=== PATIENT | female | born 1990 | race Caucasian/White ===

== ENCOUNTER 2016-11-29 17:30 | Emergency (ER) | payer OTHER ==
[2016-11-29 18:52] VITALS: BP 159/73
--- NOTE | 2016-11-29 19:08 | UC ---
Hand/Wrist HPI - HPI Summary HPI Summary: right wrist pain has been coloring at least 5 hours a day for the past week or so---no specific injury tender radial aspect of wrist - History Of Current Complaint Chief Complaint: UCUpperExtremity Stated Complaint: WRIST PAIN Time Seen by Provider: 11/29/16 18:52 Hx Obtained From: Patient Hx Last Menstrual Period: 2 yrs ?: No Mechanism Of Injury: none Onset/Duration: Sudden Onset, Lasting Days - 1, Still Present Severity Initially: Moderate Severity Currently: Moderate Character Of Pain: Aching Aggravating Factor(s): Movement Alleviating: Rest Associated Signs And Symptoms: Positive: Negative Related History: Dominant Hand Right - Allergies/Home Medications Allergies/Adverse Reactions: Allergies Allergy/AdvReac Type Severity Reaction Status Date / Time Amoxicillin [From Augmentin] Allergy Intermediate Hives Verified 11/29/16 18:52 Clavulanic Acid Allergy Intermediate Hives Verified 11/29/16 18:52 [From Augmentin] Latex Allergy Hives Verified 11/29/16 18:52 PMH/Surg Hx/FS Hx/Imm Hx Previously Healthy: No Endocrine History Of: Denies: Diabetes, Thyroid Disease Cardiovascular History Of: Denies: Cardiac Disorders, Hypertension Respiratory History Of: Denies: COPD, Asthma GI/ History Of: Denies: Ulcer - Surgical History Surgical History: Yes Surgery Procedure, Year, and Place: Tonsillectomy age 7 - Family History Known Family History: Positive: Other - irritable bowel syndrome- mother , diabetic, - Social History Occupation: Unemployed Lives: With Family Alcohol Use: None Substance Use Type: None Smoking Status (MU): Current Every Day Smoker Type: Cigarettes Amount Used/How Often: 1/2 PPD Have You Smoked in the Last Year: Yes Cessation Counseling: Counseled 3+Min - 10 Min Review of Systems Constitutional: Negative Skin: Negative Eyes: Negative ENT: Negative Respiratory: Negative Cardiovascular: Negative Gastrointestinal: Negative Genitourinary: Negative Motor: Other - full rom radial aspect tender Neurovascular: Negative Musculoskeletal: Arthralgia - right wrist Neurological: Negative Psychological: Negative All Other Systems Reviewed And Are Negative: Yes Physical Exam Triage Information Reviewed: Yes Appearance: Well-Appearing, Pain Distress - mild, Obese Vital Signs: Initial Vital Signs Temp 98.2 F 11/29/16 18:48 Pulse 63 11/29/16 18:48 Resp 12 11/29/16 18:48 BP 159/73 11/29/16 18:48 Pulse Ox 99 11/29/16 18:48 Vital Signs Reviewed: Yes Eye Exam: Normal Eyes: Positive: Conjunctiva Clear ENT Exam: Normal ENT: Positive: Normal ENT inspection, Hearing grossly normal. Negative: Nasal congestion, Nasal drainage, Tonsillar swelling, Tonsillar exudate, Trismus, Muffled/hoarse voice Neck exam: Normal Neck: Positive: Supple, Nontender, No Lymphadenopathy Respiratory Exam: Normal Respiratory: Positive: Chest non-tender, No respiratory distress, No accessory muscle use Cardiovascular Exam: Normal Cardiovascular: Positive: RRR, Pulses Normal, Brisk Capillary Refill Musculoskeletal Exam: Normal Musculoskeletal: Positive: ROM Intact, No Edema, Strength Limited @ - right wrist Neurological Exam: Normal Neurological: Positive: Alert, Muscle Tone Normal Psychological Exam: Normal Psychological: Positive: Normal Response To Family Skin Exam: Normal Re-Evaluation - Re-Evaluation First Eval Change: Improved - Thumb Spica apllied--patient reports increase comfort Hand/Wrist Course/Dx - Course Course Of Treatment: Naproxen, splint, follow with pcp - Differential Dx/Diagnosis Differential Diagnosis/HQI/PQRI: Fracture, Sprain, Strain, Tendonitis Provider Diagnoses: Right wrist tendonitis Discharge - Discharge Plan Condition: Stable Disposition: HOME Patient Education Materials: Naproxen (By mouth), Tendinitis (ED) Referrals: Katherine BROOKE ROUNDHOUSE WORKERAlanis [Primary Care Provider] - 1 Week
== END 2016-11-29 19:10 | disposition home or self-care (01) ==
LOC: UCEAST 17:30
DX: M77.9 Enthesopathy, unspecified (principal); M25.531 Pain in right wrist; Z88.1 Allergy status to other antibiotic agents; Z88.0 Allergy status to penicillin; F17.210 Nicotine dependence, cigarettes, uncomplicated
CPT/HCPCS: 99212; G0463

== ENCOUNTER 2017-07-08 18:58 | Emergency (ER) | payer OTHER ==
[2017-07-08 19:04] VITALS: BP 149/92
--- NOTE | 2017-07-08 19:12 | UC ---
Throat Pain/Nasal Jake HPI - HPI Summary HPI Summary: ST with sweating starting yesterday. Denies nasal congestion, cough, or wheezing. No exposure to strep as far as she knows. Also noticed itchy red area on top of L foot a few days ago, now it is painful and open. - History of Current Complaint Stated Complaint: FEVER THROAT PAIN Time Seen by Provider: 07/08/17 19:02 Hx Obtained From: Patient Hx Last Menstrual Period: 2 yrs ?: No Onset/Duration: Gradual Onset, Lasting Days Severity: Mild Cough: None Associated Signs & Symptoms: Positive: Fever - subj. Negative: Sinus Discomfort , Nasal Discharge - Allergies/Home Medications Allergies/Adverse Reactions: Allergies Allergy/AdvReac Type Severity Reaction Status Date / Time Amoxicillin [From Augmentin] Allergy Intermediate Hives Verified 07/08/17 19:05 Clavulanic Acid Allergy Intermediate Hives Verified 07/08/17 19:05 [From Augmentin] Latex Allergy Hives Verified 07/08/17 19:05 Home Medications: Home Medications Escitalopram Oxalate [Lexapro 10 mg] 07/08/17 [History] PMH/Surg Hx/FS Hx/Imm Hx Respiratory History: Asthma Psychological History: Depression - Surgical History Surgical History: Yes Surgery Procedure, Year, and Place: Tonsillectomy age 7 - Family History Known Family History: Positive: None, Other - irritable bowel syndrome- mother , diabetic, - Social History Alcohol Use: None Substance Use Type: None Smoking Status (MU): Current Every Day Smoker Type: Cigarettes Amount Used/How Often: 1/2 PPD Have You Smoked in the Last Year: Yes Review of Systems Constitutional: Chills Skin: Other - open, red area of skin Eyes: Negative ENT: Sore Throat Respiratory: Negative Cardiovascular: Negative Gastrointestinal: Negative Genitourinary: Negative Motor: Negative Neurovascular: Negative Musculoskeletal: Negative Neurological: Negative Psychological: Negative All Other Systems Reviewed And Are Negative: Yes Physical Exam Triage Information Reviewed: Yes Appearance: Well-Appearing, No Pain Distress, Obese Vital Signs Reviewed: Yes Eye Exam: Normal Eyes: Positive: Conjunctiva Clear ENT: Positive: Hearing grossly normal, Pharynx normal, TMs normal. Negative: TM bulging, TM dull, TM red, Tonsillar swelling, Tonsillar exudate - no tonsils Dental Exam: Normal Neck exam: Normal Neck: Positive: No Lymphadenopathy Respiratory: Positive: Chest non-tender, No accessory muscle use, Wheezing - mild Cardiovascular Exam: Normal Cardiovascular: Positive: RRR, No Murmur Musculoskeletal Exam: Normal Neurological Exam: Normal Neurological: Positive: Alert Psychological Exam: Normal Skin Exam: Other - approx 2cm round area of irreg redness with excoriated ulcers in the center. No drainage or streaking. Throat Pain/Nasal Course/Dx - Differential Dx/Diagnosis Provider Diagnoses: pharyngitis. insect bite/sting Discharge - Discharge Plan Condition: Stable Disposition: HOME Patient Education Materials: Insect Bite or Sting (ED), Pharyngitis (ED) Referrals: Katherine DEALPAlanis [Primary Care Provider] - Additional Instructions: Rapid strep test negative. Many illnesses can cause sore throats, but most of them simply need time and rest to pass. You can take ibuprofen as needed for pain or try warm saltwater gargles. Try to leave the skin on your foot alone. If you have sudden increase in redness or streaking up the leg, come back right away.
== END 2017-07-08 19:30 | disposition home or self-care (01) ==
LOC: UCEAST 18:58
DX: J02.9 Acute pharyngitis, unspecified (principal); S90.862A Insect bite (nonvenomous), left foot, initial encounter; W57.XXXA Bitten or stung by nonvenomous insect and other nonvenomous arthropods, initial encounter; Y93.9 Activity, unspecified; Y92.9 Unspecified place or not applicable; J45.909 Unspecified asthma, uncomplicated; F32.9 Major depressive disorder, single episode, unspecified; E66.9 Obesity, unspecified; Z88.1 Allergy status to other antibiotic agents; Z91.040 Latex allergy status; F17.210 Nicotine dependence, cigarettes, uncomplicated
CPT/HCPCS: 87651; 99211; G0463

== ENCOUNTER 2017-08-21 16:29 | Emergency (ER) | payer OTHER ==
[2017-08-21 17:00] VITALS: BP 153/84
--- NOTE | 2017-08-21 18:00 | ED ---
Throat Pain/Nasal Congestion - HPI Summary HPI Summary: 27F presents with sore throat, sinus congestion, and ear pain for 4 days. daughter has similiar symptoms. no fever. has tonsils removed. no history of asthma. has productive cough. admits to post nasal drip. - History of Current Complaint Chief Complaint: UCRespiratory Time Seen by Provider: 08/21/17 17:06 - Allergies/Home Medications Allergies/Adverse Reactions: Allergies Allergy/AdvReac Type Severity Reaction Status Date / Time Amoxicillin [From Augmentin] Allergy Intermediate Hives Verified 08/21/17 17:00 Clavulanic Acid Allergy Intermediate Hives Verified 08/21/17 17:00 [From Augmentin] Latex Allergy Hives Verified 08/21/17 17:00 Home Medications: Home Medications Pseudoephedrine HCl [Sudafed 12 Hour] 120 mg PO DAILY PRN 08/21/17 [History Confirmed 08/21/17] PMH/Surg Hx/FS Hx/Imm Hx Endocrine/Hematology History: Denies: Hx Diabetes, Hx Thyroid Disease Cardiovascular History: Denies: Hx Hypertension Respiratory History: Denies: Hx Asthma, Hx Chronic Obstructive Pulmonary Disease (COPD) GI History: Denies: Hx Ulcer - Surgical History Surgery Procedure, Year, and Place: Tonsillectomy age 7 Infectious Disease History: No Infectious Disease History: Denies: Hx Hepatitis, Hx Human Immunodeficiency Virus (HIV), Traveled Outside the [place] in Last 30 Days - Family History Known Family History: Positive: None, Other - irritable bowel syndrome- mother , diabetic, - Social History Alcohol Use: None Hx Substance Use: No Substance Use Type: Reports: None Hx Tobacco Use: Yes Smoking Status (MU): Heavy Every Day Tobacco Smoker Type: Cigarettes Amount Used/How Often: 1 PPD Have You Smoked in the Last Year: Yes Review of Systems Negative: Fever Positive: Sore Throat, Nasal Discharge Negative: Chest Pain Positive: Cough. Negative: Shortness Of Breath All Other Systems Reviewed And Are Negative: Yes Physical Exam Triage Information Reviewed: Yes Vital Signs On Initial Exam: Initial Vitals Temp Pulse Resp BP Pulse Ox 97.1 F 84 16 153/84 99 08/21/17 16:56 08/21/17 16:56 08/21/17 16:56 08/21/17 16:56 08/21/17 16:56 Vital Signs Reviewed: Yes Appearance: Positive: Well-Appearing Skin: Positive: Warm, Dry Head/Face: Positive: Normal Head/Face Inspection Eyes: Positive: Normal, EOMI, RK, Conjunctiva Clear ENT: Positive: Pharyngeal erythema, Nasal congestion, TMs normal, Other - no tonsils, soft palate symmetric. Negative: Trismus, Muffled/hoarse voice Neck: Positive: Supple, Nontender, No Lymphadenopathy Respiratory/Lung Sounds: Positive: Clear to Auscultation, Breath Sounds Present Cardiovascular: Positive: Normal, RRR Abdomen Description: Positive: Nontender, Soft Bowel Sounds: Positive: Present Diagnostics - Vital Signs Vital Signs Temp Pulse Resp BP Pulse Ox 08/21/17 16:56 97.1 F 84 16 153/84 99 - Laboratory Lab Results: Lab Results 08/21/17 Range/Units 17:21 Group A Strep Rapid Negative (Negative) Lab Statement: Any lab studies that have been ordered have been reviewed, and results considered in the medical decision making process. EENT Course/Dx - Course Course Of Treatment: 27F presents with sore throat, sinus congestion, and ear pain for 4 days. daughter has similiar symptoms. no fever. has tonsils removed. no history of asthma. has productive cough. admits to post nasal drip. on exam lungs CTA. strept neg. will treat with tessalon and magic mouth wash. patient understands and agrees with plan. - Differential Diagnoses Differential Diagnoses: Pharyngitis, Sinusitis, URI/Bronchitis - Diagnoses Provider Diagnoses: Upper respiratory infection Discharge - Discharge Plan Condition: Good Disposition: HOME Prescriptions: Benzonatate CAP* [Tessalon 100 MG CAP*] 100 mg PO TID #15 cap Magic Mouth Was-MILLIE/MAAL/LIDO* 5 ml SWISH SWAL QID #100 ml Patient Education Materials: Upper Respiratory Infection (ED) Referrals: Katherine BROOKE WINDLACE MACHINE OPERATOR,Alanis [Primary Care Provider] - Additional Instructions: Magic mouthwash 5ml swish and spit can use 4x a day use tessalon three times a day for cough Take Tylenol or ibuprofen for pain Use saline spray in nose as much as needed Use humidifier in room or can use warm water in bowls Can gargle salt water Follow up with primary within a week Return to ED if develop any new or worsening symptom
== END 2017-08-21 18:14 | disposition home or self-care (01) ==
LOC: UCEAST 16:29
DX: J06.9 Acute upper respiratory infection, unspecified (principal); Z88.1 Allergy status to other antibiotic agents; F17.210 Nicotine dependence, cigarettes, uncomplicated
CPT/HCPCS: 87651; 99212; G0463

== ENCOUNTER 2017-09-12 17:30 | Emergency (ER) | payer OTHER ==
[2017-09-12 17:43] VITALS: BP 144/80
--- NOTE | 2017-09-12 17:51 | UC ---
Eye Complaint HPI - HPI Summary HPI Summary: 27 year old female presents with complains of right eye redness, ulcers on the roof of the mouth and small skin wounds on both arms. - History of Current Complaint Chief Complaint: UCGeneralIllness Stated Complaint: EYE COMPLAINT Time Seen by Provider: 09/12/17 17:49 Hx Obtained From: Patient Hx Last Menstrual Period: depo Onset/Duration: Sudden Onset Timing: Constant Severity Currently: Moderate - Allergies/Home Medications Allergies/Adverse Reactions: Allergies Allergy/AdvReac Type Severity Reaction Status Date / Time Amoxicillin [From Augmentin] Allergy Intermediate Hives Verified 08/21/17 17:00 Clavulanic Acid Allergy Intermediate Hives Verified 08/21/17 17:00 [From Augmentin] Latex Allergy Hives Verified 08/21/17 17:00 PMH/Surg Hx/FS Hx/Imm Hx Previously Healthy: Yes - Surgical History Surgical History: None Surgery Procedure, Year, and Place: Tonsillectomy age 7 - Family History Known Family History: Positive: None, Other - irritable bowel syndrome- mother , diabetic, - Social History Alcohol Use: None Substance Use Type: None Smoking Status (MU): Heavy Every Day Tobacco Smoker Type: Cigarettes Amount Used/How Often: 1 PPD Have You Smoked in the Last Year: Yes - Immunization History Most Recent Influenza Vaccination: none Review of Systems Constitutional: Negative Skin: Other - skin lesions Eyes: Drainage, Eye Redness ENT: Other - mouth ulcers on the roof of the mouth. Respiratory: Negative Cardiovascular: Negative Gastrointestinal: Negative Genitourinary: Negative Motor: Negative Neurovascular: Negative Musculoskeletal: Negative Neurological: Negative Psychological: Negative All Other Systems Reviewed And Are Negative: Yes Physical Exam Triage Information Reviewed: Yes Vital Signs: Initial Vital Signs Temp 36.8 C 09/12/17 17:35 Pulse 77 09/12/17 17:35 Resp 16 09/12/17 17:35 BP 144/80 09/12/17 17:35 Pulse Ox 100 09/12/17 17:35 Vital Signs Reviewed: Yes Eyes: Positive: Conjunctiva Inflamed, Discharge ENT: Positive: Other: - mouth ulcers Dental Exam: Normal Neck exam: Normal Neck: Positive: 1 Respiratory Exam: Normal Cardiovascular Exam: Normal Abdominal Exam: Normal Musculoskeletal Exam: Normal Neurological Exam: Normal Psychological Exam: Normal Skin Exam: Normal Eye Complaint Course/Dx - Differential Dx/Diagnosis Provider Diagnoses: right conjunctivitis. mouth ulcers/canker sores Discharge - Discharge Plan Condition: Stable Disposition: HOME Prescriptions: DOXYcycline CAP(*) [DOXYcycline 100MG CAP(*)] 100 mg PO BID #14 cap Magic M W2 Huseyin/Maal/Nyst/Lido* 5 ml SWISH SPIT QID PRN #120 ml PRN Reason: Pain Polymyx/Trimethoprim OPTH* [Polytrim OPHTH*] 1 drop RIGHT EYE Q8H #1 btl Patient Education Materials: Canker Sores (ED), Conjunctivitis (ED) Referrals: Katherine BROOKE INTERNET ARCHITECT,Alanis [Primary Care Provider] -
== END 2017-09-12 18:08 | disposition home or self-care (01) ==
LOC: UCEAST 17:30
DX: H10.9 Unspecified conjunctivitis (principal); Z88.1 Allergy status to other antibiotic agents; F17.210 Nicotine dependence, cigarettes, uncomplicated; K12.0 Recurrent oral aphthae
CPT/HCPCS: 99211; G0463

== ENCOUNTER 2018-05-13 19:18 | Emergency (ER) | payer OTHER ==
[2018-05-13 19:34] VITALS: BP 142/78
--- NOTE | 2018-05-13 19:51 | UC ---
Ear Complaint HPI - HPI Summary HPI Summary: 27 year old female with no significant pmhx here for left ear pain since yesterday. Patient reports sharp pain that developed right after holding her nose and blowing out while playing a game. She reports she felt a pop and severe pain since then. Decreased hearing and constant pain. No other complaints. - History of Current Complaint Chief Complaint: UCEar Stated Complaint: EAR COMPLAINT Time Seen by Provider: 05/13/18 19:24 Hx Obtained From: Patient Hx Last Menstrual Period: on depo Onset/Duration: Sudden Onset Severity Initially: Mild Pain Intensity: 7 Alleviating Factors: OTC Meds - Allergies/Home Medications Allergies/Adverse Reactions: Allergies Allergy/AdvReac Type Severity Reaction Status Date / Time amoxicillin [From Augmentin] Allergy Hives Verified 05/13/18 19:26 clavulanic acid Allergy Hives Verified 05/13/18 19:26 [From Augmentin] latex Allergy Hives Verified 05/13/18 19:26 Home Medications: Home Medications Topiramate [Topamax] 200 mg PO BID 05/13/18 [History Confirmed 05/13/18] PMH/Surg Hx/FS Hx/Imm Hx Previously Healthy: Yes - Surgical History Surgical History: None Surgery Procedure, Year, and Place: Tonsillectomy age 7 - Family History Known Family History: Positive: None, Other - irritable bowel syndrome- mother , diabetic, - Social History Alcohol Use: None Substance Use Type: None Smoking Status (MU): Heavy Every Day Tobacco Smoker Type: Cigarettes Amount Used/How Often: 1 PPD Have You Smoked in the Last Year: Yes - Immunization History Most Recent Influenza Vaccination: none Review of Systems Constitutional: Negative Skin: Negative Eyes: Negative ENT: Ear Ache Respiratory: Negative Cardiovascular: Negative Gastrointestinal: Negative Genitourinary: Negative Motor: Negative Neurovascular: Negative Musculoskeletal: Negative Neurological: Negative Psychological: Negative Is Patient Immunocompromised?: No All Other Systems Reviewed And Are Negative: Yes Physical Exam Triage Information Reviewed: Yes Appearance: Well-Appearing, No Pain Distress Vital Signs: Initial Vital Signs Temp 35.9 C 05/13/18 19:25 Pulse 71 05/13/18 19:25 Resp 18 05/13/18 19:25 BP 142/78 05/13/18 19:25 Pulse Ox 98 05/13/18 19:25 ENT: Positive: Other - Left ear with dried blood over TM; no rupture of TM Respiratory Exam: Normal Cardiovascular Exam: Normal Musculoskeletal Exam: Normal Skin Exam: Normal Ear Complaint Course/Dx - Differential Dx/Diagnosis Differential Diagnosis/HQI/PQRI: Barotrauma, Perforated TM, Other Provider Diagnoses: Left ear pain with evidence of mild bleeding,. No evidence of ruptured TM. Applied ear wick with immediate relief. Discharge - Sign-Out/Discharge Documenting (check all that apply): Discharge/Admit/Transfer - Discharge Plan Condition: Good Disposition: HOME Prescriptions: Ibuprofen 800 mg PO Q8HR PRN #30 tablet PRN Reason: Pain Patient Education Materials: Earache (ED) Referrals: Marquis Rios MD [Medical Doctor] - Additional Instructions: Apply ear wick to left ear for comfort - Billing Disposition and Condition Condition: GOOD Disposition: Home
== END 2018-05-13 20:05 | disposition home or self-care (01) ==
LOC: UCEAST 19:18
DX: H92.02 Otalgia, left ear (principal); H92.22 Otorrhagia, left ear; Z88.0 Allergy status to penicillin; Z88.1 Allergy status to other antibiotic agents; Z91.040 Latex allergy status; F17.210 Nicotine dependence, cigarettes, uncomplicated; Z83.3 Family history of diabetes mellitus
CPT/HCPCS: 99202; G0463

== ENCOUNTER 2018-05-26 16:22 | Emergency (ER) | payer OTHER ==
[2018-05-26 16:29] VITALS: BP 134/85
--- NOTE | 2018-05-26 16:32 | UC ---
Skin Complaint HPI - HPI Summary HPI Summary: 27 yo female presents with rash to arms, legs, and chest for the last 3 days after swimming in a [place]. The rash is itchy, but not painful. Has not taken anything OTC or applied any creams. Denies fever, chills, or trouble breathing. - History of Current Complaint Chief Complaint: UCRash Time Seen by Provider: 05/26/18 16:32 Stated Complaint: RASH Hx Obtained From: Patient Hx Last Menstrual Period: Depo Onset/Duration: Gradual Onset Skin Exposure Onset/Duration: Days Ago Current Severity: None Pain Intensity: 0 - Allergy/Home Medications Allergies/Adverse Reactions: Allergies Allergy/AdvReac Type Severity Reaction Status Date / Time amoxicillin [From Augmentin] Allergy Hives Verified 05/26/18 16:30 clavulanic acid Allergy Hives Verified 05/26/18 16:30 [From Augmentin] latex Allergy Hives Verified 05/26/18 16:30 Review of Systems Constitutional: Negative Skin: Rash Respiratory: Negative Cardiovascular: Negative Gastrointestinal: Negative Neurovascular: Negative Neurological: Negative Psychological: Negative All Other Systems Reviewed And Are Negative: Yes PMH/Surg Hx/FS Hx/Imm Hx - Additional Past Medical History Additional PMH: Headaches Previously Healthy: Yes Psychological History: Anxiety - Surgical History Surgical History: None Surgery Procedure, Year, and Place: Tonsillectomy age 7 - Family History Known Family History: Positive: None, Other - irritable bowel syndrome- mother , diabetic, - Social History Occupation: Employed Full-time Lives: With Family Alcohol Use: None Substance Use Type: None Smoking Status (MU): Heavy Every Day Tobacco Smoker Type: Cigarettes Amount Used/How Often: 1 PPD Have You Smoked in the Last Year: Yes - Immunization History Most Recent Influenza Vaccination: none Physical Exam - Summary Physical Exam Summary: GENERAL: NAD. WDWN. No pain distress. SKIN: Mildly erythematous rash that appears irritated on b/l arms and upper legs. Itchy. No streaking, bleeding, or drainage. NECK: Supple. Nontender. No lymphadenopathy. CHEST: No accessory muscle use. Breathing comfortably and in no distress. CV: RRR. Without m/r/g. NEURO: Alert. CN II-XII grossly intact. PSYCH: Age appropriate behavior. Triage Information Reviewed: Yes Vital Signs: Initial Vital Signs Temp 97.2 F 05/26/18 16:26 Pulse 87 05/26/18 16:26 Resp 18 05/26/18 16:26 BP 134/85 05/26/18 16:26 Pulse Ox 98 05/26/18 16:26 Course/Dx - Course Course Of Treatment: Suspect contact dermatitis - rx for prednisone and hydrocortisone cream. - Diagnoses Provider Diagnoses: Contact dermatitis Discharge - Sign-Out/Discharge Documenting (check all that apply): Discharge/Admit/Transfer - Discharge Plan Condition: Stable Disposition: HOME Prescriptions: Hydrocortisone 1% CREAM* [Hytone Cream 1%*] 1 applic TOPICAL BID #1 tube predniSONE TAB* [Deltasone TAB*] 50 mg PO DAILY #5 tab Patient Education Materials: Contact Dermatitis (DC) Referrals: Alanis Francois RN [Primary Care Provider] - Additional Instructions: If you develop a fever, shortness of breath, chest pain, new or worsening symptoms - please call your PCP or go to the ED. 1) Please take over the counter benadryl daily to help with the rash and itch - Billing Disposition and Condition Condition: STABLE Disposition: Home
== END 2018-05-26 17:02 | disposition home or self-care (01) ==
LOC: UCEAST 16:22
DX: L25.8 Unspecified contact dermatitis due to other agents (principal); F17.210 Nicotine dependence, cigarettes, uncomplicated; Z88.0 Allergy status to penicillin; Z91.040 Latex allergy status
CPT/HCPCS: 99212; G0463

== ENCOUNTER 2018-06-03 15:19 | Emergency (ER) | payer OTHER ==
[2018-06-03 15:33] VITALS: BP 117/66
--- NOTE | 2018-06-03 16:21 | UC ---
Skin Complaint HPI - HPI Summary HPI Summary: This is glen Horner documenting for attending Mima Ramos MD. This patient is a 28 year old F presenting to [facility] with a chief complaint of diffuse rash since 11 days ago. The patient reports that was here on 05/26 and was prescribed prednisone but she notes that her rash came back when she finished the prednisone. The patient reports that the prednisone helped with the itchiness but the rash has spread. The patient reports that the rash first appeared after she went swimming in [place]. The patient rates the pain 0/10 in severity. Symptoms aggravated by showering or water on her body. Symptoms alleviated by nothing. Patient denies difficulty breathing or swelling in the mouth. The patient reports a strange sensation on her tongue. The patient notes that she takes Topamax. - History of Current Complaint Chief Complaint: UCRash Time Seen by Provider: 06/03/18 15:57 Stated Complaint: RASH Hx Obtained From: Patient Hx Last Menstrual Period: unknown on depo Onset/Duration: Gradual Onset, Lasting Weeks, Still Present Skin Exposure Onset/Duration: Weeks Ago Onset Severity: Mild Current Severity: None Pain Intensity: 0 Pain Scale Used: 0-10 Numeric Location: Diffuse Character: Redness Aggravating Factor(s): Wet Conditions Alleviating Factor(s): Nothing Associated Signs & Symptoms: Positive: Rash. Negative: Throat Tightening Related History: Possible Reaction to: Environmental Exposure - Allergy/Home Medications Allergies/Adverse Reactions: Allergies Allergy/AdvReac Type Severity Reaction Status Date / Time amoxicillin [From Augmentin] Allergy Hives Verified 06/03/18 15:33 clavulanic acid Allergy Hives Verified 06/03/18 15:33 [From Augmentin] latex Allergy Hives Verified 06/03/18 15:33 Review of Systems Constitutional: Negative - negative fever Skin: Rash - diffuse red rash ENT: Negative - negative sore throat Respiratory: Negative - negative shortness of breath All Other Systems Reviewed And Are Negative: Yes PMH/Surg Hx/FS Hx/Imm Hx - Surgical History Surgical History: None Surgery Procedure, Year, and Place: Tonsillectomy age 7 - Family History Known Family History: Positive: None, Other - irritable bowel syndrome- mother , diabetic, - Social History Alcohol Use: None Substance Use Type: None Smoking Status (MU): Heavy Every Day Tobacco Smoker Type: Cigarettes Amount Used/How Often: 1 PPD Have You Smoked in the Last Year: Yes - Immunization History Most Recent Influenza Vaccination: none Physical Exam Vital Signs: Initial Vital Signs Temp 99.1 F 06/03/18 15:30 Pulse 61 06/03/18 15:30 Resp 18 06/03/18 15:30 BP 117/66 06/03/18 15:30 Pulse Ox 100 06/03/18 15:30 Discharge - Discharge Plan Condition: Stable Disposition: HOME Prescriptions: Famotidine TAB* [Pepcid 20 MG TAB*] 20 mg PO DAILY #12 tab predniSONE TAB* [Deltasone 20 MG TAB*] 20 mg PO DAILY #13 tab Patient Education Materials: Urticaria (ED), Acute Rash (ED) Referrals: Vinay Hester MD [Medical Doctor] - (Please call tomorrow for an appointment with Dr. Hester this week.) Katherine BROOKE HANDLE BAR ASSEMBLER,Alanis [Primary Care Provider] - Additional Instructions: Take prednisone exactly as prescribed until gone - starting today - Okay to take Benadryl (1-2 tablets) every 6 hours as needed. This medication may cause drowsiness - do NOT drive, operate machinery or drink alcohol while taking Benadryl -Take pepcid as prescribed - 2 times daily as prescribed -Avoid getting over heated (hot showers, hot tubs, exercise) for at least 48 hours - Try to avoid aspirin, NSAIDs (Motrin, Aleve, Naprosyn) for 2-3 days - Okay to apply cool compresses to the area of injury -Contact the cardiac rehab nurse you were referred to to schedule a follow-up appointment. - Billing Disposition and Condition Condition: STABLE Disposition: Home
== END 2018-06-03 16:35 | disposition home or self-care (01) ==
LOC: UCEAST 15:19
DX: R21 Rash and other nonspecific skin eruption (principal); F17.210 Nicotine dependence, cigarettes, uncomplicated; Z88.0 Allergy status to penicillin; Z91.040 Latex allergy status
CPT/HCPCS: 99212; G0463

== ENCOUNTER 2019-05-01 16:41 | Emergency (ER) | payer OTHER ==
--- OUTSIDE RECORDS SUMMARY | 2019-05-01 16:45 | XMS REPORT | Continuity of Care Document ---
:1990 Author Organization [facility] Address [address], [place] [id number] Phone Care Team Providers Name Role Phone Marley Padilla NP Unavailable Unavailable Allergies, Adverse Reactions, Alerts Substance Reaction Status latex Active POTASSIUM CLAVULANATE Active AMOXICILLIN TRIHYDRATE Active Medications Medication Instructions Dosage Effective Dates Status Comments (start - stop) Depo-Provera 150 IM Q 11-13 weeks - Active mg/mL intramuscular suspension TOPAMAX (unknown Not Available - Active strength) LEXAPRO (unknown Not Available - Active strength) NAPROXEN (unknown Not Available - Active strength) FOLGARD (unknown Not Available - Active strength) Depo-Provera 150 IM Q 11-13 weeks - No Longer mg/mL intramuscular Active suspension Problems Condition Effective Dates (start - Clinical Status Comments stop) Human immunodeficiency virus [HIV] - counseling Encounter for test, result negative Encounter for surveillance of injectable contraceptive Encounter for surveillance of injectable contraceptive Encounter for surveillance of injectable contraceptive Encounter for test, result negative Encounter for surveillance of injectable contraceptive Encounter for surveillance of injectable contraceptive Encounter for surveillance of injectable contraceptive Encounter for surveillance of injectable contraceptive Encounter for surveillance of injectable contraceptive Encounter for surveillance of injectable contraceptive Encounter for surveillance of injectable contraceptive Encounter for surveillance of injectable contraceptive Encounter for surveillance of injectable contraceptive Encounter for surveillance of injectable contraceptive Encounter for surveillance of injectable contraceptive Encounter for surveillance of injectable contraceptive Encounter for surveillance of injectable contraceptive Encounter for surveillance of injectable contraceptive Encounter for oth general cnsl and advice on contraception Encounter for surveillance of other contraceptives Encounter for surveillance of injectable contraceptive BCM Other, Surveillance BCM Other, Surveillance BCM Other, Surveillance BCM Other, Surveillance BCM Other, Surveillance BCM Other, Surveillance BCM Other, Surveillance BCM Other, Surveillance Tobacco Dependency Procedures Procedure Date PREVENTIVE COUNSELING, Under 8 Minutes URINE TEST OFFICE/OUTPATIENT VISIT, EST INJECTION DEPO/CEFTRIAXONE BLOOD PRESSURE Height/Weight OTHER Medical Services Contraceptive Back Feeder Plywood Layup Line.Svc. Other Back Feeder Plywood Layup Line.Svc. STI Results Test Name Date and Time Measure Units Reference Range Abnormal Flag Status Comments Panel Description: High Sensitivity Urine Test Final High Sensitivity Urine 14:21:24 NegativeInternal Quality Final Test Control: Positive Advance Directives Directive Yes / No Effective Date File Name No information Encounters Encounter Practice Location Reason(s) Diagnoses Date Provider Providers Description For Visit Copied on Encounter OFFICE/OUTPA [facility] Randy Referring TIENT VISIT, [facility] [place] Control immunodeficienc Marley. 620 Provider: EST [facility] Renewal y virus [HIV] [address], Marley Finger (chief counselingEncou [place], Randy J, [address], 620 complaint) [place] [address], [place]. [address] test, tel:[phone] , [place], St, [place], [place] [address] [place], [address]. [place], negativeEncount tel:[phone], er for [id number] [place] surveillance of tel:[phone] injectable [phone] contraceptive [facility] Encounter for Jan-0 Devan Madrigal. Referring [facility] surveillance of [address] Provider: Southern injectable [address], [place], [place], [address], [place], [address], [address] [place], [place], St, [place], [place], [address].Consu [id number], ing [place] Provider: tel:[phone] [place] [id number] [facility] Encounter for Devan Madrigal. [facility] [address] Provider: Southern injectable [address], [place], [place], [address], [place], [address] [place], [address] [place], [place], St, [place], [address].Consu [id number], lting [place] Provider: tel:[phone] [place] [id number] [facility] Encounter for Borgl [facility] test, Sujatha. 620 Provider: Southern result [address], Sujatha Finger negativeEncount [place], [place], [place], [place], 620 [place] [address], [place]. [address] surveillance of tel:[phone] [address], St, [place], injectable [address] [place], [place], contraceptive [address]. [id number], tel:[phone] [place] [phone] tel:[phone] [facility] Encounter for [facility] Referring [facility] [place] surveillance of [place]. 620 Provider: Southern injectable [address], Sujatha Finger contraceptive [place], [place], Borgl[place], [facility], 620 [address], [place]. [address] tel:[phone] [address], St, [place], [address] [place], [place], [address]. [id number], tel:[phone] [place] [phone] tel:[phone] lting [phone] [place]: [place] [facility] Encounter for Devan Madrigal. [facility] surveillance of [address] Provider: Southern injectable [address], [place], [place], [address], [place], [address] [place], [address] [place], [place], St, [place], [address]. [place], [id number], [place] tel:[phone] [facility] Encounter for White Kaitlin. Referring [facility] [place] surveillance of [address] Provider: Southern injectable [address], [place], [place], [address], [place], [address] [place], 620 [place]. [address], [place], St, [place], [address].Consu [id number], lting [place] Provider: tel:[phone] [place] [id number] [facility]. [facility] Encounter for Devan Madrigal. Referring [facility] [place] surveillance of 2-201 [address] Provider: Southern injectable [address], [place], [place], [address], [place], [address] [place], [address] [place], [place], St, [place], [address].Consu [id number], lting [place] Provider: tel:[phone] [place] [id number] [facility]. [facility] Encounter for Jero Referring [facility] [place] surveillance of 0-201 Ana. 620 W Provider: Southern injectable [address], Ana Finger contraceptive [place], Raphaelidis [facility], [facility] [address]. , [address] tel:[phone] [address], St, [place], [address] [place], [address]. [id number], tel:[phone] [place] [phone] tel:[phone] lting [phone] Provider: [place] [facility] Encounter for Jero [facility]erring [facility] surveillance of 2-201 Ana. 620 W Provider: Southern injectable [address], Hayley Finger contraceptive [place], Elizabeth R, [facility], 620 [address]. [address] tel:[phone] [address], St, [place], [address] [place], [address]. [id number], tel:[phone] [place] [phone] tel:[phone] lting [phone] Provider: [place] [facility]. [facility] Encounter for Devan Madrigal. Referring [facility] surveillance of - [address] Provider: Southern injectable [address], [place], [place], [address], Elizabeth R, [facility], 620 [place]. [address], St, [place], [place], [address]. [id number], tel:[phone] [place] [phone] tel:[phone] lting [phone] Provider: [place] [facility]. [facility] Encounter for Jan-0 Devan Madrigal. Referring [facility] surveillance of [address] Provider: Southern injectable [address], [place], [place], [address], Chuck Hernandez, 620 [place]. [address], St, [place], [place], [address]. [id number], tel:[phone] [place] [phone] tel:[phone] [facility] Encounter for Oct- Jero [facility] surveillance of Ana. 620 W Provider: Southern injectable [address], Hayley Finger contraceptive [place], Chuck Hernandez, 620 [address]. [address] tel:[phone] [address] [address] [place], [address]. [id number], tel:[phone] [place] [phone] tel:[phone] lting [phone] Provider: [place] [facility]. [facility] Encounter for Devan Madrigal. Referring [facility] surveillance of [address] Provider: Southern injectable [address], [place], [place], [address], Chuck Hernandez, 620 [place]. [address], St, [place], [place], [address]. [id number], tel:[phone] [place] [phone] tel:[phone] lting [phone] Provider: [place] [facility]. [facility] Encounter for Jun- Borglum [facility]erring [facility] surveillance of Sujatha. 620 Provider: Southern injectable [address], Hayley [place] contraceptive [place], Chuck Hernandez, 620 [address], [place]. [address] tel:[phone] [address], St, [place], [address] [place], [address]. [id number], tel:[phone] [place] [phone] tel:[phone] [facility] Encounter for White Kaitlin. [facility]erring [facility] surveillance of [address] Provider: Southern injectable [address], [place], [place] [address], Chuck Hernandez, 620 [place]. [address] St, [place], [place], [address]. [id number], tel:[phone] [place] [phone] tel:[phone] lting [phone] Provider: [place] [facility]. [facility] Encounter for Kornblum [facility]erring [facility] surveillance of Brittaney. 620 W Provider: Southern injectable [address], Hayley Finger contraceptiveEn [place], Chuck Hernandez, 620 counter [place] oth [address]. [address] general cnsl tel:[phone], , [place], [place] [address] [place], contraception [address]. [id number], tel:[phone] [place] [phone] tel:[phone] [facility] Encounter for [facility] Referring [facility] surveillance of adam Sueane. Provider: [facility] other [address], [place], [facility], 620 [place], [address]. mmer, [address] tel:[phone], St, [place], [address] [place], [place], [address]. [id number], tel:[phone] [place] [phone] tel:[phone] lting [phone] Provider: [place] [facility]. [facility] Encounter for Vuong Cassandra. Referring [facility] surveillance of [address] Provider: Southern injectable [address], [place], [place], [address]. Vuong, [address] [place], 620 tel:[phone], [place], [place], [place], [address]. [place], tel:[phone], [id number] [place] lting tel:[phone] Provider: [id number] [place] [facility]. [facility] BCM Other, Aug-1 Parete Referring [facility] [place] Surveillance 2 Daynaa. 620 W Provider: Southern [address], Dayana [place], [place]arete, 620 [facility], 620 [address]. [address] tel:[phone] St, [place], St, [place], [address] [place], [address]. [place], tel:[phone], [id number] [place] lting tel:[phone] Provider: [id number] [place] [facility]. [facility] BCM Other, Yevgeniy Trujillo. Referring [facility] [place] Surveillance [address] Provider: [facility] 5 , [place], [place], [address]. Vuong, 620 [facility], 620 tel:[phone], [place], [place], [place], [address]. [place], tel:[phone], [phone] [place] lting tel:[phone] Provider: [id number] [place] [facility]. [facility] BCM Other, Yevgeniy Trujillo. Referring [facility] Surveillance [address] Provider: [facility] 5 , [place], [place], [address]. Vuong, 620 [facility], 620 tel:[phone], [place], [place], [place], [address]. [place], tel:[phone], [id number] [place] tel:[phone] [facility] BCM Other, [place] Referring [facility] [place] Surveillance Vivek. 620 Provider: Southern [address], Vivek [place], [place], [facility], 620 [address]. [address] tel:[phone], , [place], [address] [place], [address]. [id number], tel:[phone] [place] [phone] tel:[phone] lting [phone] Provider: [place] [facility]. [facility] BCM Other, Yevgeniy Trujillo. Referring [facility] Surveillance [address] Provider: Southern [address], [place], [place], [address]. Vuong, 620 [facility], 620 tel:[phone] [address] [address] , [place], , [place], [address]. [place], tel:[phone], [id number] [place] lting tel:[phone] Provider: [id number] [place] [facility]. [facility] BCM Other, [facility] Surveillance Provider: [place] [address] NURSE [place] YRN Finger [facility]. [facility], [address] , [place], [place], [id number], [place] tel:[phone] Planned [facility] BCM Other, [facility] Surveillance Hayley. 620 W Provider: [place] [address] [address] , [place], [place], Elizabeth [facility], [facility] [address]. [address] tel:[phone] [address] , [facility], [address] [place], [address]. [id number], tel:[phone] [place] [phone] tel:[phone] lting [phone] Provider: [place] [facility]. [facility]CM Other, [facility] . [address] W Southern acco [facility] [address] , [facility] [place], [place], [facility], 620 [address]. [address] tel:[phone] [facility], [address] [place], [id number], [place] tel:[phone] [facility] Car[facility]. [address] Southern [address], [place], [place], [facility], [facility] [address]. [address] tel:[phone] , [place], [address] [place], [id number], [place] tel:[phone] Family History Family Member Diagnosis Age At Onset Maternal grandfather Diabetes mellitus 1st degree relative No hx of cancer of breast, colon, endometrium or ovary Maternal grandfather Hyperlipidemia Maternal grandmother Hyperlipidemia Maternal grandfather Hypertension Maternal grandmother Diabetes mellitus 1st degree relative No hx of coronary heart disease (female <65, male <55) 1st degree relative No hx of osteoporosis Maternal grandmother Hypertension Mother 1st degree relative No hx of venous thromboembolism Immunizations Vaccine Date Status Comments MMR administered Source: New Immunization Record HPV administered Source: New Immunization Record Hepatitis B administered Source: New Immunization Record Payers Payer name Insurance type Covered democrat ID Authorization(s) Jeremy SNELL [facility] CI [id number] Social History Type Description Quantity Date Captured Comments Alcohol Use Details Unknown Caffeine Use Details Unknown Tobacco Use Status Moderate cigarette smoker (10-19 cigs/day) Smoking Status Heavy tobacco smoker Smoking Tobacco Use Cigarette: Years Used 5 Cigarette: 0.5 Packs per day, Pack Year: 2.5 Details Sex Female Vital Signs Date / Height Weight BMI Pulse Blood Temperature Respiratory Body Head BMI Pulse Inhaled Time: Rate Pressure Rate Surface Circumference percentile Ox Ox Area 67.00 236.00 36.9 122/80 -2019 in lbs 6 mm[Hg] 2:07 kg/m PM eter (2) Chief Complaint And Reason For Visit Most recent encounter only, dated '04/02/2019 14:30'. Control Renewal (chief complaint) Reason For Referral Reason For Referral No information Plan Of Treatment Date Type Action Status Goal Tobacco cessation counseling completed History Of Present Illness Encounter Date Complaint History Of Present Illness No information Functional Status Date Functional Assessment No information Medications Administered Medication Instructions Dosage Effective Dates (start - stop) Status Comments No information Instructions Date Instruction Additional Information No information Assessments Type Assessment Date assessment Human immunodeficiency virus [HIV] counseling assessment Encounter for test, result negative assessment Encounter for surveillance of injectable contraceptive Goals Health Concern Goal Type Priority Status Date No information Medical Equipment Description Device Telephone Device Identifier Effective Dates (start - stop ) Status No information Mental Status Date Cognitive Assessment Normal Orientation Health Concerns Observation Date No information Concern Status Date No information
[2019-05-01 16:59] VITALS: BP 118/76
--- NOTE | 2019-05-01 17:22 | UC ---
Skin Complaint HPI - HPI Summary HPI Summary: 28-year-old female who developed a body wide itching after using a different type of soap. She denies any difficulty breathing. - History of Current Complaint Chief Complaint: UCRash Time Seen by Provider: 05/01/19 17:12 Stated Complaint: RASH Hx Obtained From: Patient Hx Last Menstrual Period: depo shot ?: No Onset/Duration: Gradual Onset Skin Exposure Onset/Duration: Hours Ago Timing: Constant Onset Severity: Mild Current Severity: Mild Pain Intensity: 10 Location: Generalized - Generalized itching but no specific rash or hives. Denies any difficulty breathing. Character: Pruritus Aggravating Factor(s): Other - Patient used a different type of soap. Alleviating Factor(s): Antihistamines, Other - Patient was able to take a shower and is been using Benadryl but without improvement. Associated Signs & Symptoms: Positive: Negative Related History: Other: - Patient used a different kind of soap today. - Allergy/Home Medications Allergies/Adverse Reactions: Allergies Allergy/AdvReac Type Severity Reaction Status Date / Time amoxicillin [From Augmentin] Allergy Hives Verified 05/01/19 16:58 clavulanic acid Allergy Hives Verified 05/01/19 16:58 [From Augmentin] latex Allergy Hives Verified 05/01/19 16:58 Home Medications: Home Medications diphenhydrAMINE HCl [Benadryl Allergy] 2 tab PO ONCE PRN 05/01/19 [History Confirmed 05/01/19] PMH/Surg Hx/FS Hx/Imm Hx Previously Healthy: Yes Psychological History: Depression - Surgical History Surgical History: Yes Surgery Procedure, Year, and Place: Tonsillectomy age 7 - Family History Known Family History: Positive: None, Other - irritable bowel syndrome- mother , diabetic, - Social History Alcohol Use: None Substance Use Type: None Smoking Status (MU): Heavy Every Day Tobacco Smoker Type: Cigarettes Amount Used/How Often: 1/2 PPD Have You Smoked in the Last Year: Yes Household Exposure Type: Cigarettes - Immunization History Most Recent Influenza Vaccination: none Review of Systems All Other Systems Reviewed And Are Negative: Yes Skin: Positive: Other - Generalized itching. Is Patient Immunocompromised?: No Physical Exam Triage Information Reviewed: Yes Appearance: Well-Appearing, No Pain Distress, Well-Nourished Vital Signs: Initial Vital Signs Temp 97.7 F 06/14/19 16:54 Pulse 75 05/01/19 16:54 Resp 18 05/01/19 16:54 BP 118/76 05/01/19 16:54 Pulse Ox 100 05/01/19 16:54 Vital Signs Reviewed: Yes Eyes: Positive: Conjunctiva Clear Respiratory: Positive: Lungs clear, Normal breath sounds, No respiratory distress, No accessory muscle use Cardiovascular: Positive: RRR, No Murmur, Pulses Normal, Brisk Capillary Refill Skin: Positive: Other - I don't see any specific rash however the patient has generalized itching mostly on her arms and legs. Course/Dx - Course Course Of Treatment: Patient has been taking Benadryl however she can continue that every 6 hours and then I added a Medrol Dosepak. - Diagnoses Provider Diagnosis: Urticaria Discharge - Sign-Out/Discharge Documenting (check all that apply): Patient Departure All imaging exams completed and their final reports reviewed: No Studies - Discharge Plan Condition: Fair Disposition: HOME Prescriptions: methylPREDNISolone [Medrol] 4 mg PO DAILY #1 tab.ds.pk Patient Education Materials: Urticaria (ED) Referrals: Kasandra Armijo [Primary Care Provider] - Additional Instructions: You may continue to take Benadryl every 6 hours as needed and follow-up with her primary care provider if no improvement in 2 or 3 days. - Billing Disposition and Condition Condition: FAIR Disposition: Home
== END 2019-05-01 17:23 | disposition home or self-care (01) ==
LOC: UCEAST 16:41
DX: L50.9 Urticaria, unspecified (principal); F17.210 Nicotine dependence, cigarettes, uncomplicated
CPT/HCPCS: 99212; G0463

== ENCOUNTER 2019-08-26 17:02 | Emergency (ER) | payer OTHER ==
[2019-08-26 17:19] VITALS: BP 133/81
--- NOTE | 2019-08-26 17:32 | UC ---
General HPI - HPI Summary HPI Summary: Patient is a 29yo female presenting with request for blood draw [facility]. Patient states with her past she also had negative urine tests and the had to be confirmed with a blood draw. Patient states she gets the depo shot normally every two months but her last one was in March. She stopped getting it because she has been trying to get . Patient notes LMP was before March, and she usually gets it every month. She notes symptoms of x1 month, including intermittent nausea and vomiting and breast tenderness. Patient does not wish to have another urine test here, stating she "just wants blood work." - History of Current Complaint Chief Complaint: UCGeneralIllness Stated Complaint: WANTS BLOOD DRAWN Hx Obtained From: Patient Hx Last Menstrual Period: hasn't had one since last Depo shot in March Pain Intensity: 0 - Allergy/Home Medications Allergies/Adverse Reactions: Allergies Allergy/AdvReac Type Severity Reaction Status Date / Time amoxicillin [From Augmentin] Allergy Hives Verified 08/26/19 17:20 clavulanic acid Allergy Hives Verified 08/26/19 17:20 [From Augmentin] latex Allergy Hives Verified 08/26/19 17:20 PMH/Surg Hx/FS Hx/Imm Hx - Surgical History Surgical History: Yes Surgery Procedure, Year, and Place: Tonsillectomy age 7 - Family History Known Family History: Positive: None, Other - irritable bowel syndrome- mother , diabetic, - Social History Alcohol Use: None Substance Use Type: None Smoking Status (MU): Current Every Day Smoker Type: Cigarettes Amount Used/How Often: 1/2 PPD Have You Smoked in the Last Year: Yes Household Exposure Type: Cigarettes - Immunization History Most Recent Influenza Vaccination: none Review of Systems All Other Systems Reviewed And Are Negative: No Constitutional: Positive: Negative Cardiovascular: Positive: Negative Gastrointestinal: Positive: Vomiting, Nausea. Negative: Abdominal Pain Genitourinary: Positive: Negative Musculoskeletal: Positive: Negative Neurological: Positive: Negative Psychological: Positive: Negative Physical Exam Triage Information Reviewed: Yes Appearance: Well-Appearing, No Pain Distress, Well-Nourished, Obese Vital Signs: Initial Vital Signs Temp 98.8 F 08/26/19 17:13 Pulse 66 08/26/19 17:13 Resp 18 08/26/19 17:13 BP 133/81 08/26/19 17:13 Pulse Ox 98 08/26/19 17:13 Vital Signs Reviewed: Yes Eyes: Positive: Conjunctiva Clear ENT: Positive: Hearing grossly normal Neck: Positive: Supple Respiratory: Positive: No respiratory distress Neurological: Positive: Alert Psychological: Positive: Age Appropriate Behavior Course/Dx - Course Course Of Treatment: Patient declined a urine , stating she only wants serum HCG. I informed her that she will be notified tomorrow if the results are positive. Patient voiced understanding and agreed to the plan. - Diagnoses Provider Diagnosis: Possible , not yet confirmed Discharge ED - Sign-Out/Discharge Documenting (check all that apply): Patient Departure All imaging exams completed and their final reports reviewed: No Studies - Discharge Plan Condition: Stable Disposition: HOME Referrals: Oliva Santos MD [Medical Doctor] - If Needed Kasandra Armijo [Primary Care Provider] - If Needed Additional Instructions: As discussed, your blood was drawn today to check for and you will be notified tomorrow if your result is positive. - Billing Disposition and Condition Condition: STABLE Disposition: Home
== END 2019-08-26 17:45 | disposition home or self-care (01) ==
LOC: UCEAST 17:02
DX: Z32.00 Encounter for pregnancy test, result unknown (principal); Z88.8 Allergy status to other drugs, medicaments and biological substances; F17.210 Nicotine dependence, cigarettes, uncomplicated
CPT/HCPCS: 36415; 84702; 99212; G0463

== ENCOUNTER 2020-02-23 14:44 | Emergency (ER) | payer OTHER ==
--- OUTSIDE RECORDS SUMMARY | 2020-02-23 14:52 | XMS REPORT | Continuity of Care Document ---
:1990 Author Organization [facility] Address [address] [place] [address] Phone Care Team Providers Name Role Phone Jero COVINGTON, nAa Unavailable Unavailable Allergies, Adverse Reactions, Alerts Substance Reaction Status latex Active POTASSIUM CLAVULANATE Active AMOXICILLIN TRIHYDRATE Active Medications Medication Instructions Dosage Effective Status Comments Dates (start - stop) Depo-Provera 150 IM Q 11-13 weeks - Active mg/mL intramuscular suspension Protonix 20 mg - Active tablet,delayed release TOPAMAX (unknown Not Available - Active strength) LEXAPRO (unknown Not Available - Active strength) nicotine 14 mg/24 apply 1 patch by 14 MG - No Longer hr daily transdermal route Active transdermal patch every day NAPROXEN (unknown Not Available - No Longer strength) Active FOLGARD (unknown Not Available - No Longer strength) Active Problems Condition Effective Dates (start - Clinical Status Comments stop) Encounter for initial prescription of injectable contracep Encounter for oth general cnsl and - advice on contraception Human immunodeficiency virus [HIV] - counseling Amenorrhea, unspecified Encounter for test, result negative Human immunodeficiency virus [HIV] - counseling Encounter [...] Other, Surveillance Tobacco Dependency Procedures Procedure Date No information Results Test Name Date and Time Measure Units Reference Range Abnormal Flag Status Comments No information Advance Directives Directive Yes / No Effective Date File Name No information Encounters Encounter Practice Location Reason(s) Diagnoses Date Provider Providers Description For Visit Copied on [facility]counter [facility] for [facility] [place] Control initial Ana. [address] Of Greater Consult prescription of [address], [place], (chief injectable [place], [place], [address] complaint) [address]Encoun [address], [place] ter for oth tel:[phone] [place], general cnsl [phone], and advice on [place] contraception tel:[phone] [facility] Human Raphaelidis [facility] [place] immunodeficienc Ana. [address] Provider: Of Greater y virus [HIV] [address], [place], counselingAmeno [place], [place], Raphaelidis [address] r[address]hea, [address]. , [address], [place] unspecifiedEnco tel:[phone] [address], [place], [place], [place] [address] [place], [place], [id number], test, [address]. [place] result negative tel:+[phone] tel:[phone] [facility] Human Randy [facility] [place] immunodeficienc [address]. [address] Provider: Of Greater y virus [HIV] [address], [place], counselingEncou [place], [place], Randy J, [address] [place] [address], [place]. [address], New test, tel:[phone] St, [place], [place], [place] [address] [place], [address]. [id number], negativeEncount tel:[phone] [place] er for [phone] tel:[phone] surveillance of [id number] injectable contraceptive [facility] Encounter for Devan Madrigal. [facility] [place] surveillance of [address] [place] Provider: Of Greater injectable [address], [place], [place], [place], [address], [place], [address] [place]. [address], [address], [place], [place], [id number], [address].Consu [place] lting tel:[phone] Provider: [id number] NURSE [place] [facility] Encounter for Devan Madrigal. [facility] [place] surveillance of [address] [place] Provider: Of Greater injectable [address], [place], [place], [place], [address], [place], [address] [place]. [address], [address], [place], [place], [id number], [address].Consu [place] lting tel:[phone] Provider: [id number] NURSE [place] [facility] [place] [facility], Sujatha. 620 Provider: Of Greater result [address], [facility], negativeEncount [place], [place], [address] [place] [address], [place]. [address] , New surveillance of tel:+[phone], [place], injectable [address] [place], [place], [id number], contraceptive [address]. [place] tel:+ tel:[phone] [facility] Encounter for [place] [facility] surveillance of Sujatha. 620 Provider: Of Greater injectable [address], [facility], contraceptive [place], [place], [address] [address], [place]. [address], New tel:[phone], [place], [address] [place], [id number], [address]. [place] tel:+ tel: [phone] [phone] lting Provider: NURSE [place] [facility] Encounter for Devan Madrigal. [facility] [place] surveillance of [address] [place] Provider: Of Greater injectable [address], [place], [place], [address], [place], [address] [place]. [address], [address], [place], [place], [address]. [id number], [place] tel:[phone] [facility] Encounter for Devan Madrigal. [facility] surveillance of [address] [place] Provider: Of Greater injectable [address], [place], [place], [address], [place], [address] [place]. [address], [address], [place], [place], [id number], [address].Consu [place] lting tel: Provider: [id number] [facility]URSE [facility] Encounter for Devan Madrigal. [facility] surveillance of [address] [place] Provider: Of Greater injectable [address], [place], [place], [address], [place], [address] [place]. [address], [address], [place], [place], [place], [id number], [address].Consu [place] lting tel:[phone] Provider: [id number] NURSE [place] [facility] Encounter for Jero [facility] surveillance of Ana. [address] W Provider: Of Greater injectable [address], [place], contrace[place], Raphaelidis [address] [address]. , [address], New tel:[phone], [place], [address] [place], [id number], [address]. [place] tel:+ tel:[phone] [phone] lting Provider: NURSE [place] [facility] Encounter for Jero [facility] [place] surveillance of Ana. [address] W Provider: Of Greater injectable [address], [place], contraceptive [place], [place], Elizabeth R, [address] [address], [place] tel:[phone] [place], [address] [place], [place], [id number], [address]. [place] tel:+[phone] tel:[phone] [phone] lting Provider: NURSE [facility] Encounter for Devan Madrigal. [facility] [place] surveillance of [address] [place] Provider: Of Greater injectable [address], [place], [place], [address], Elizabeth R, [address] [place], [place], [place], [place], [id number], [address]. [place] tel:+[phone] tel:[phone] [phone] lting Provider: NURSE [facility] Encounter for Jan-0 Devan Madrigal. [facility] [place] surveillance of [address] [place] Provider: Of Greater injectable [address], [place], [place], [address], Elizabeth R, [address] [place]. [address], [place] [address], [place], [place], [place], [place], [id number], [address]. [place] tel:[phone] tel:[phone] [facility] Encounter for Jero [facility] [place] surveillance of Ana. [address] W Provider: Of Greater injectable [address], [place], contrace[place], [place], Elizabeth R, [address] [address], [place] tel:[phone] [place], [address] [place], [place], [id number], [address]. [place] tel:+[phone] tel:[phone] [phone] lting Provider: NURSE [place] [facility] Encounter for Devan Madrigal. [facility] [place] surveillance of [address] [place] Provider: Of Greater injectable [address], [place], [place], [address], Elizabeth R, [address] [place], [place] [address], [place], [place], [place], [place], [id number], [address]. [place] tel:[phone] tel:[phone] [phone] lting Provider: NURSE OR [facility] Encounter for [place] [facility]erring [facility] [place] surveillance of Sujatha. 620 Provider: Of Greater injectable [address], [place], [place], [place], [place], [address] [address], [place]. [address], [place] tel:[phone] [place], [address] [place], [place], [id number], [address]. [place] tel:+[phone] tel:[phone] [facility] Encounter for Devan Madrigal. [facility]erring [facility] [place] surveillance of [address] [place] Provider: Of Greater injectable [address], [place], [place], [address], Elizabeth Cameron, [address] [place]. [address], [place] , [place], [place], [place], [place], [id number], [address]. [place] tel:+[phone] tel:[phone] [phone] lting Provider: NURSE [place] [facility] Encounter for [facility]erring [facility] [place] surveillance of Provider: Of Greater injectable 6 [place], contraceptiveEn Elizabeth Cameron, [address] counter for oth [address] , [place] cns[place], and advice on [place], [place], [id number], contraception [address]. [place] tel:+[phone] tel:[phone] [facility] Encounter for Hemmer Referring [facility] [place] surveillance of [place] Provider: Of Greater other 6 [address]. [address] [place], contraceptives [address], [place] [address] [place], [place], [place], [facility] [address]. [address] [place], [place], tel:[phone] [place] , [id number], [address] [place] [address]. tel:+[phone] tel:[phone] lting Provider: NURSE [facility] Encounter for Yevgeniy [place]. [facility] surveillance of [address] [place] Provider: Of [address], [facility], [address]. [place], [address] tel:+[phone] W [facility], [address], [place], [address]. [id number], tel:[phone] [place] [phone] tel:[phone] lting [phone] Provider: NURSE [place] [facility]. [facility] BCM Other, Referring [facility] [place] Surveillance . [address] W Provider: Of [address], [place], [facility], [address] [address]. [address], [facility] tel:+[phone] [place], [place], [address] [place] [address], [address]. [id number], tel:[phone] [place] [phone] tel:[phone] lting [phone] Provider: NURSE OR [facility] BCM Other, Yevgeniy [place]. [facility] Surveillance [address] [place] Provider: Of [address], [address]. [place], [address] tel:+[phone] [address] [place] [address], [place], [address]. [id number], tel:[phone] [place] [phone] tel:[phone] lting [phone] Provider: NURSE OR [facility] BCM Other, Yevgeniy [place]. [facility] Surveillance [address] [place] Provider: Of [address], [address]. Yevgeniy, [address] tel:+[phone], [facility] [address] , [place], [place], [address]. [id number], tel:[phone] [place] [phone] tel:[phone] [facility] BCM Other, [place] [facility]erring [facility] Surveillance 3 V[address]k. 620 Provider: Of Greater 5 W [facility], [facility], [place], [place], [place], [address] [address], [place] tel:[phone] [place], [address] [place], [place], [id number], [address]. [place] tel:+[phone] tel:[phone] [phone] lting Provider: NURSE OR [facility] BCM Other, [place] Cassandra. [facility] Surveillance [address] [place] Provider: Of [facility], [place], [address]. [place], [address] tel:[phone] [address], [facility] [address] , [place], [place], [address]. [id number], tel:[phone] [place] [phone] tel:[phone] lting [phone] Provider: NURSE [place] [facility]. [facility] BCM Other, [facility] Surveillance Provider: Of [facility] 4 NURSE OR [place], PPSFL. [address] [place], [place], [id number], [place] tel:[phone] [facility] BCM Other, Elizabeth Referring [facility] Surveillance 8 [place]. [address] W Provider: Of [facility] 4 [facility], [place], [place], [place], Elizabteh R, [address] [address], [place] tel:[phone] [place], [address] [place], [place], [id number], [address]. [place] tel:[phone] tel:[phone] [phone] lting Provider: NURSE OR [place] [facility]. [facility] BCM Other, [place] [facility] SurveillanceTob 0-. [address] W Of Greater acco [facility] 4 [place], [place], [place], [address] [address]. [facility] tel:[phone] [place], [id number], [place] tel:[phone] [facility] [place] [address]. [address] Of Greater 4 [place], [place], [place], [address] [address]. [facility] tel:[phone] [place], [id number], tel:[phone] Family History Family Member Diagnosis Age At [...] Record Payers Payer name Insurance type Covered constitution party ID Authorization(s) Jeremy SNELL [facility] CI [id number] Social History Type Description Quantity Date Captured [...] Rate Surface Circumference percentile Ox Ox Area No information Chief Complaint And Reason For Visit Most recent encounter only, dated '02/16/2020 09:33'. Control Consult (chief complaint) Reason For Referral Reason For Referral No information Plan Of Treatment Date Type Action Status Goal Tobacco cessation counseling completed Goal Tobacco cessation counseling completed Goal Tobacco cessation counseling completed History Of Present Illness Encounter Date Complaint History Of Present Illness No information Functional Status Date Functional Assessment No information Medications Administered Medication Instructions Dosage Effective Dates (start - stop) Status Comments No information Instructions Date Instruction Additional Information No information Assessments Type Assessment Date assessment Encounter for initial prescription of injectable contracep 2019 assessment Encounter for oth general cnsl and advice on contraception 2019 Goals Health Concern Goal Type Priority Status Date No information Medical Equipment Description Device Tabiona Device Identifier Effective Dates (start - stop ) Status No information Mental Status Date Cognitive Assessment Normal Orientation Health Concerns Observation Date No information Concern Status Date No information
--- OUTSIDE RECORDS SUMMARY | 2020-02-23 14:52 | XMS REPORT | Continuity of Care Document ---
:1990 Author Organization [facility] Address [address] [place] [address] Phone Care Team Providers Name Role Phone Jero HOSPICE COORDINATOR, Ana Unavailable Unavailable PPSFL, NURSE OR [place] Unavailable Unavailable Allergies, Adverse Reactions, Alerts Substance [...] Encounter for initial prescription of injectable contracep Body mass index (BMI) 34.0-34.9, adult Encounter for test, result negative Encounter for initial prescription of injectable contracep [...] for surveillance of injectable contraceptive Encounter for ot general cnsl and advice on contraception Encounter for surveillance of other contraceptives Encounter for surveillance of injectable contraceptive BCM Other, Surveillance BCM Other, Surveillance BCM Other, Surveillance BCM Other, Surveillance BCM Other, Surveillance BCM Other, Surveillance BCM Other, Surveillance BCM Other, Surveillance Tobacco Dependency Procedures Procedure Date URINE TEST INJECTION DEPO/CEFTRIAXONE INJECTION OR LAB ONLY VISIT EST Height/Weight OTHER Medical Services Contraceptive 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 Other 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 STI DEPO Results Test Name Date and Time Measure Units Reference Range Abnormal Flag Status Comments Panel Description: High Sensitivity Urine Test Final High Sensitivity Urine 10:44:59 NegativeInternal Quality Final Test Control: Positive Panel Description: High Sensitivity Urine Test Final High Sensitivity Urine 10:44:24 NegativeInternal Quality Final Test Control: Positive Advance Directives Directive Yes / No Effective Date File Name No information Encounters Encounter Practice Location Reason(s) Diagnoses Date Provider Providers Description For Visit Copied on Encounter [facility] Nurse Encounter for Jan-3 [facility] [place] Visit initial Ana. [address] Provider: Of Greater (chief prescription of [address], [facility] [place] [facility] injectable [place], PPSFL. [address], New mass index tel:[phone] [place], (BMI) [address] [id number], 34.0-34.9, [place] adultEncounter tel:[phone] for [phone] test, result negative [facility] Encounter for Jan-3 [facility] [place] initial Ana. [address] Of Greater prescription of [address], [place], injectable [place], [place], [address], [place] ter for oth tel:[phone] [place], general cnsl [phone], and advice on [place] contraception tel:[phone] [facility] Human Raphaelidis Referring [facility] [place] immunodeficienc [facility]. [address] Provider: Of Greater y virus [HIV] [address], [place], counselingAmeno [place], Raphaelidis [address] rrhea, [address]. , [address], [place] unspecifiedEnco tel:[phone], [place], [place], [place] [address] [place], [place], [id number], test, [address]. [place] result negative tel:+72 tel:[phone] [facility] Human Randy Referring [facility] [place] immunodeficienc [place]. 620 Provider: Of Greater y virus [HIV] [address], [facility] counselingEncou [place], Randy J, [address] [address], [place]. [address], New test, tel:[phone] St, [place], [place], [place] [address] [place], [address]. [id number], negativeEncount tel:+[phone] [place] er for [phone] tel:[phone] surveillance of [phone] injectable contraceptive [facility] Encounter for Jan-0 Devan Madrigal. [facility] of [address] Provider: Of Greater injectable [address], [place], [place], [address], [place], [address] [place]. [address], [address] St, [place], [place], [id number], [address].Consu [place] lting tel:[phone] Provider: [id number] NURSE OR [place] [facility]. [facility] Encounter for Devan Madrigal. Referring [facility] [place] surveillance of [address] Provider: Of Greater injectable [address], [place], [place], [address], [place], [address] [place]. [address], [address] St, [place], [place], [id number], [address].Consu [place] lting tel:[phone] Provider: [id number] NURSE OR [place] [facility]. [facility] Encounter for Borglum Referring [facility] [place] test, [place]. 620 Provider: Of Greater result [address], [facility], negativeEncount [place], [place], [address] [place] [address], [place]. [address], [facility] surveillance of tel:[phone], [place], injectable [address] [place], [place], [id number], contraceptive [address]. [place] tel:+ tel:+ [phone] [facility] Encounter for Borglum Referring [facility] [place] surveillance of [place]. 620 Provider: Of Greater injectable [address], [facility], contraceptive [place], [place], [address] [address], [place]. [address], [facility] tel:[phone], [place], [address] [place], [place], [id number], [address]. [place] tel: tel:[phone] [phone] lting Provider: NURSE OR [place] [facility]. [facility] Encounter for Devan Madrigal. Referring [facility] [place] surveillance of [address] Provider: Of Greater injectable [address], [place], [place], [address], [place], [address] [place]. [address], [address] St, [place], [place], [address]. [id number], [place] tel:[phone] [facility] Encounter for Devan Madrigal. Referring [facility] [place] surveillance of [address] Provider: Of Greater injectable [address], [place], [place], [address], [place], [address] [place], [address] St, [place], [place], [id number], [address].Consu [place] lting tel:[phone] Provider: [id number] NURSE OR [place] [facility]. [facility] Encounter for Devan Madrigal. Referring [facility] [place] surveillance of - [address] Provider: Of Greater injectable [address], [place], [place], [place], [address], [place], [address] [place], [address] St, [place], [place], [id number], [address].Consu [place] lting tel:[phone] Provider: [id number] NURSE OR [place] [facility]. [facility] Encounter for Jero [facility]erring [facility] surveillance of 0-201 [place]. [address] Provider: Of Greater injectable [address], [place], contrace[place], Raphaelidis [address] [address]. , [address], New tel:[phone] [address], [place], [address] [place], [place], [id number], [address]. [place] tel:+72 tel:[phone] [phone] lting Provider: NURSE OR [place] [facility]. [facility] Encounter for Jero Referring [facility] [place] surveillance of 2-201 Ana. [address] W Provider: Of Greater injectable [address], [place], contraceptive [place], Elizabeth R, [address] [address], New tel:[phone], [place], [address] [place], [place], [id number], [address]. [place] tel:[phone] tel:[phone] [phone] lting Provider: NURSE OR MA [facility]. [facility] Encounter for Devan Madrigal. Ref[facility] surveillance of [address] Provider: Of Greater injectable [address], [place], [place], [address], Elizabeth R, [address] [place], [address], [place], [place], [place], [id number], [address]. [place] tel:+[phone] tel:[phone] [phone] lting Provider: NURSE OR MA [facility]. [facility] Encounter for Mar-0 Devan Madrigal. Referring [facility] surveillance of [address] Provider: Of Greater injectable [address], [place], [place], [place], [address], Elizabeth R, [address] [place], [address], [place], [place], [place], [id number], [address]. [place] tel:[phone] tel:[phone] [facility] Encounter for Jero Referring [facility] surveillance of Ana. [address] W Provider: Of Greater injectable [address], [place], contraceptive [place], [place], Elizabeth R, [address] [address], New tel:[phone] [address], [place], [address] [place], [place], [id number], [address]. [place] tel:+[phone] tel:[phone] [phone] lting Provider: NURSE OR MA [facility]. [facility] Encounter for Devan Madrigal. Referring [facility] surveillance of [address] Provider: Of Greater injectable [address], [place], [place], [address], Elizabeth R, [address] [place], [address], [place], [place], [place], [id number], [address]. [place] tel:+[phone] tel:[phone] [phone] lting Provider: NURSE OR [place] [facility]. [facility] Encounter for Borglum Referring [facility] [place] surveillance of Sujatha. 620 Provider: Of Greater injectable [address], [place], contrace[place], Elizabeth R, [address] [address], [place]. [address], New tel:[phone] [address], [place], [address] [place], [place], [id number], [address]. [place] tel:+[phone] tel:[phone] [facility] Encounter for Devan Madrigal. Referring [facility] surveillance of [address] Provider: Of Greater injectable [address], [place], [place], [address], Elizabeth R, [address] [place], [address], [place], [place], [place], [place], [id number], [address]. [place] tel:[phone] tel:[phone] [phone] lting Provider: NURSE OR MA [facility]. [facility] Encounter for Referring [facility] [place] surveillance of Provider: Of Greater injectable 6 [place], contraceptiveEn Elizabeth R, [address] counter for oth [address], New general cnsl [address] , [place], [place], and advice on [place], [place], [id number], contraception [address]. [place] tel:+[phone] tel:[phone] [facility] Encounter for Hemmer Referring [facility] [place] surveillance of [facility] Provider: Of [facility] other 6 [address]. [address] [place], contraceptives [address], [place] [address] [place], [place], [place], [facility] [address]. [address] [place], [place], tel:[phone] [address], [id number], [address] [place] [address]. tel:+[phone] tel:[phone] lting Provider: NURSE OR [place] [facility]. [facility] Encounter for Vuong Cassandra. Referring [facility] surveillance of [address] Provider: Of Greater injectable [address], [place], [place]andra [place], [address]. Vuong, [address] tel:[phone] [address], [place] [address] St, [place], [place], [address]. [id number], tel:[phone] [place] [phone] tel:[phone] lting [phone] Provider: NURSE OR [place] [facility]. [facility] BCM Other, Parete Referring [facility] [place] Surveillance . [address] Provider: Of Greater [address], [place], [place], [place], [address] [address], New tel:+[phone] , [place], [place], [address] [place], [address]. [id number], tel:[phone] [place] [phone] tel:[phone] lting [phone] Provider: NURSE OR [place] [facility]. [facility] BCM Other, Yevgeniy Callahania. Referring [facility] [place] Surveillance [address] Provider: Of [address], [place], [address]. Vuong, [address] tel:+[phone] [address] [address] , [place], [place], [address]. [id number], tel:[phone] [place] [phone] tel:[phone] lting [phone] Provider: NURSE OR [place] [facility]. [facility] BCM Other, Yevgeniy Trujillo. Referring [facility] [place] Surveillance [address] Provider: Of [address], [place], [address]. Vuong, [address] tel:+[phone] [address] [address] , [place], [place], [address]. [id number], tel:[phone] [place] [phone] tel:[phone] [facility] BCM Other, Ana Rosa Referring [facility] [place] Surveillance [place]. [facility] Provider: Of [facility] [address] [facility], [place], [place], [place], [address] [address], New tel:[phone] [address], [place], [address] [place], [place], [id number], [address]. [place] tel:[phone] tel:[phone] [phone] lting Provider: NURSE OR [place] [facility]. [facility] BCM Other, Yevgeniy Trujillo. Referring [facility] [place] Surveillance [address] Provider: Of [facility] [address] [facility], [place], [address]. Vuong, [address] tel:+[phone] [address] [address] , [place], [place], [address]. [id number], tel:[phone] [place] [phone] tel:[phone] lting [phone] Provider: NURSE OR YRN [facility]. [facility] BCM Other, [facility] [place] Surveillance 5 Provider: Of [place] [address] NURSE OR YRN [place], PPSFL. 26 [place], [place], [id number], [place] tel:[phone] [facility] BCM Other, Elizabeth Referring [facility] [place] Surveillance 8 Hayley. [address] Provider: Of [address] [place], [place], [place], Elizabeth Cameron, [address] [address] [facility] tel:+[phone] [place], [address] [place], [place], [id number], [address]. [place] tel:+72 tel:+ [phone] [phone] lting Provider: NURSE OR YRN [facility]. [facility] BCM Other, Parete [facility] [place] SurveillanceTob 0-201 [place]. [address] Of Greater acco Dependency [address] [place], [place], [place], [address] [address] [facility] tel:+[phone] [place], [id number], [place] tel:[phone] [facility] [place]. [address] Of Greater [address] [place] [address], [place], [address] [address] [facility] tel:+[phone] [place], [id number], [place] tel:[phone] Family History Family Member Diagnosis Age At [...] Record Payers Payer name Insurance type Covered republican ID Authorization(s) [facility] [id number] Social History Type Description Quantity Date Captured Comments Alcohol Use Details Unknown Caffeine Use Details Unknown Tobacco Use Status Smoking Status Heavy tobacco smoker Sex Female Vital Signs Date / Height Weight BMI Pulse Blood Temperature Respiratory Body Head BMI Pulse Inhaled Time: Rate Pressure Rate Surface Circumference percentile Ox Ox Area 68.00 230.00 34.9 -2020 in lbs 7 10:33 kg/m AM eter (2) 98.00 F -2019 10:37 AM Chief Complaint And Reason For Visit Most recent encounter only, dated '02/16/2020 10:20'. Depo Nurse Visit ( chief complaint) Reason For Referral Reason For Referral [...] initial prescription of injectable contracep 2019 assessment Body mass index (BMI) 34.0-34.9, adult assessment Encounter for test, result negative Goals Health Concern Goal Type Priority Status Date No information Medical Equipment Description Device [place] Device Identifier Effective Dates (start - stop ) Status No information Mental Status Date Cognitive Assessment No information Health Concerns Observation Date No information Concern Status Date No information
[2020-02-23 14:58] VITALS: BP 144/81
--- NOTE | 2020-02-23 15:17 | UC ---
Ear Complaint HPI - HPI Summary HPI Summary: The patient is a 29-year-old female that presents here with left earache. She states that it feels like there is fluid behind her eardrum. She noticed the onset of this after cleaning her left ear with a Q-tip. She denies any decreased hearing. She said it feels like her ear is popping similar to when she drives up a hill. She denies any fever or chills she denies any URI symptoms. - History of Current Complaint Chief Complaint: UCEar Stated Complaint: EAR PAIN Hx Obtained From: Patient Hx Last Menstrual Period: 02/15/20 Onset/Duration: Sudden Onset, Lasting Hours Severity Initially: Moderate Severity Currently: Moderate Pain Intensity: 6 Pain Scale Used: 0-10 Numeric Aggravating Factors: Nothing Alleviating Factors: Nothing - Allergies/Home Medications Allergies/Adverse Reactions: Allergies Allergy/AdvReac Type Severity Reaction Status Date / Time amoxicillin [From Augmentin] Allergy Hives Verified 02/23/20 14:52 clavulanic acid Allergy Hives Verified 02/23/20 14:52 [From Augmentin] latex Allergy Hives Verified 02/23/20 14:52 Home Medications: Home Medications Escitalopram Oxalate [Lexapro 10 mg] 10 mg PO DAILY 07/08/17 [History Confirmed 02/23/20] Topiramate [Topamax] 100 mg PO BID 05/13/18 [History Confirmed 02/23/20] Fluticasone NASAL SPRAY 50MCG* [Flonase NASAL SPRAY 50MCG*] 2 spray BOTH NARES BID #1 btl 02/23/20 [Rx] PMH/Surg Hx/FS Hx/Imm Hx Previously Healthy: Yes - Surgical History Surgical History: Yes Surgery Procedure, Year, and Place: Tonsillectomy age 7 - Family History Known Family History: Positive: Diabetes, Other - irritable bowel syndrome- mother , diabetic, - Social History Alcohol Use: None Substance Use Type: None Smoking Status (MU): Current Every Day Smoker Type: Cigarettes Amount Used/How Often: 1/2 PPD Have You Smoked in the Last Year: Yes Household Exposure Type: Cigarettes Cessation Counseling: Patient Advised to Stop - Immunization History Most Recent Influenza Vaccination: none Review of Systems All Other Systems Reviewed And Are Negative: Yes Constitutional: Positive: Negative Skin: Positive: Negative Eyes: Positive: Negative ENT: Positive: Ear Ache Respiratory: Positive: Negative Cardiovascular: Positive: Negative Gastrointestinal: Positive: Negative Genitourinary: Positive: Negative Motor: Positive: Negative Neurovascular: Positive: Negative Musculoskeletal: Positive: Negative Neurological/Mental Status: Positive: Negative Psychological: Positive: Negative Physical Exam Triage Information Reviewed: Yes Appearance: Well-Appearing, No Pain Distress, Well-Nourished Vital Signs: Initial Vital Signs Temp 97 F 02/23/20 14:57 Pulse 60 02/23/20 14:57 Resp 12 02/23/20 14:57 BP 144/81 02/23/20 14:57 Pulse Ox 98 02/23/20 14:57 Vital Signs Reviewed: Yes Eyes: Positive: Conjunctiva Clear ENT: Positive: Hearing grossly normal, TM bulging - L, Uvula midline. Negative : Nasal congestion, Nasal drainage, Tonsillar swelling, Tonsillar exudate, Sinus tenderness Neck: Positive: Supple, Nontender, No Lymphadenopathy Respiratory: Positive: Lungs clear, Normal breath sounds, No respiratory distress, No accessory muscle use Cardiovascular: Positive: RRR, No Murmur Musculoskeletal: Positive: ROM Intact, No Edema Neurological: Positive: Alert Psychological Exam: Normal Skin Exam: Normal Ear Complaint Course/Dx - Differential Dx/Diagnosis Provider Diagnosis: Left serous otitis media, Elevated BP without diagnosis of hypertension, Smoker Discharge ED - Sign-Out/Discharge Documenting (check all that apply): Patient Departure All imaging exams completed and their final reports reviewed: No Studies - Discharge Plan Condition: Stable Disposition: HOME Prescriptions: Fluticasone NASAL SPRAY 50MCG* [Flonase NASAL SPRAY 50MCG*] 2 spray BOTH NARES BID #1 btl Patient Education Materials: Serous Otitis Media (ED) Referrals: Kasandra Armijo [Primary Care Provider] - 2 Weeks (if not better) Additional Instructions: tylenol if needed - Billing Disposition and Condition Condition: STABLE Disposition: Home
== END 2020-02-23 15:28 | disposition home or self-care (01) ==
LOC: UCEAST 14:44
DX: H65.92 Unspecified nonsuppurative otitis media, left ear (principal); R03.0 Elevated blood-pressure reading, without diagnosis of hypertension; Z88.0 Allergy status to penicillin; Z88.1 Allergy status to other antibiotic agents; Z91.040 Latex allergy status; F17.210 Nicotine dependence, cigarettes, uncomplicated
CPT/HCPCS: 99212; G0463